=== PATIENT | male | born 1945 ===

== ENCOUNTER 2019-05-25 15:00 | Outpatient (CLI) | payer MEDICARE, OTHER | END 2019-05-25 23:59 | disposition short-term general hospital (02) | LOC: EMS 15:00 | PROVIDERS: ATTEND Surgery | DX: M25.551 Pain in right hip (principal); W01.198A Fall on same level from slipping, tripping and stumbling with subsequent striking against other object, initial encounter; Y93.89 Activity, other specified; Y92.008 Other place in unspecified non-institutional (private) residence as the place of occurrence of the external cause | CPT/HCPCS: A0425; A0427 ==